=== PATIENT | female | born 2000 | race American Indian/Alaskan Native ===

== ENCOUNTER 2020-03-27 18:14 | Inpatient (IN) | payer MEDICAID ==
[2020-03-27] MEDS: BETAMET ACET/BETAMET NA PH 6 MG/ML INJ 5 ML MDV IM SCH (21:45)
[2020-03-27 22:12] LABS: Basophils % (Auto) 0.4 % (0.0-1.8); Eosinophils # (Auto) 0.1 K/mm3 (0.0-0.4); Eosinophils % (Auto) 0.6 % (0.0-4.3); Hematocrit 34.4 % (30.3-42.9); Hemoglobin 12.1 gm/dl (10.1-14.3); Lymphocytes # (Auto) 1.6 K/mm3 (1.2-5.4); Lymphocytes % (Auto) 14.8 % (13.4-35.0); Mean Corpuscular HGB Conc 35 % (30-34); Mean Corpuscular Volume 86 fl (79-97); Monocytes # (Auto) 0.9 K/mm3 (0.0-0.8); Monocytes % (Auto) 8.7 % (0.0-7.3); Platelet Count 208 K/mm3 (140-440)
--- NOTE | 2020-03-28 06:32 | History and Physical Report ---
<SAMARA GAINES - Last Filed: 03/28/20 06:13> History of Present Illness Date of examination: 03/27/20 Date of admission: 03/27/20 18:14 Chief complaint: Pt was sent by [facility] yesterday for an IOL r/t twin gestation, IUGR, and breech presentation. She denies any complaints and admits to active FM. History of present illness: 19 y/o AA female @ 35.6 wks was sent to [facility] per [facility] for /t di/di twins with twin A LGA and twin B IUGR and transverse. Pt initiated pnc at [facility] at 6 4/7 wks. Her preg has been complicated by anemia, right breast cellulitis (resolved) and vit D def. GBS test was not performed. Pt was admitted to L&D. 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 Family/Genetic History: none Social history: single - Obstetrical History Expected Date of Delivery: 04/25/20 Actual Gestation: 36 Week(s) 0 Day(s) : 2 Para: 0 Medications and Allergies Allergies Allergy/AdvReac Type Severity Reaction Status Date / Time No Known Allergies Allergy Unverified 03/27/20 19:52 Home Medications Medication Instructions Recorded Confirmed Last Taken Type Aspirin 81 mg PO DAILY 03/27/20 03/27/20 03/23/20 History Ferrous Sulfate 325 mg PO BID 03/27/20 03/27/20 03/27/20 History 148/Iron/Folate 6/Dha 148 mg PO DAILY 03/27/20 03/27/20 03/27/20 History Active Meds: Active Medications Betamethasone Acet/Betameth SodPhos (Celestone Soluspan) 12 mg IM Q24H ANTONIO Stop: 03/28/20 20:01 Last Admin: 03/27/20 21:45 Dose: 12 mg Documented by: Review of Systems All systems: negative Eyes: deferred Ears, nose, mouth and throat: deferred Breasts: normal Genitourinary: normal appearance Rectal Exam: deferred - Vital Signs Vital signs: Vital Signs Temp Pulse Resp Pulse Ox 98 F 70 16 98 03/27/20 19:00 03/27/20 19:00 03/27/20 19:00 03/27/20 19:00 Temp Pulse Resp BP Pulse Ox 97.9 F 67 18 110/72 98 03/28/20 04:00 03/28/20 06:10 03/28/20 04:00 03/28/20 04:00 03/28/20 06:10 - Physical Exam Breasts: Positive: normal Cardiovascular: Regular rate Lungs: Positive: Clear to auscultation Abdomen: Positive: normal appearance, soft, normal bowel sounds, other (gravid) Genitourinary (Female): Positive: normal external genitalia, normal perenium Vulva: both: normal Vagina: Positive: normal moisture Uterus: Positive: enlarged (gravid), normal contour, other (gravid) Adnexa: both: normal Anus/Rectum: Positive: normal perianal skin Extremities: Positive: normal - Obstetrical FHR: auscultation normal, category 1 Uterine Contraction Monitor Mode: External Uterine Contraction Pattern: Absent Uterine Tone Measurement Phase: Resting Results Result Diagrams: 03/27/20 21:40 Abnormal lab results 03/27/20 Range/Units 21:40 MCHC 35 H (30-34) % RDW 16.0 H (13.2-15.2) % Crenshaw % (Auto) 8.7 H (0.0-7.3) % Crenshaw # (Auto) 0.9 H (0.0-0.8) K/mm3 Seg Neutrophils % 75.5 H (40.0-70.0) % Seg Neutrophils # 8.1 H (1.8-7.7) K/mm3 All other labs normal. Assessment and Plan A: IUP@ 35.6 wks twin A LGA, twin B IUGR/breech CAT I FHT X2 p: Admit to L&D Continuous monitoring Pain med prn Notify Dr Ruiz for POC <PATIENCE CRUZ JR - Last Filed: 03/28/20 09:16> History of Present Illness Date of admission: 03/27/20 18:14 Medications and Allergies Active Meds: Active Medications Betamethasone Acet/Betameth SodPhos (Celestone Soluspan) 12 mg IM Q24H ANTONIO Stop: 03/28/20 20:01 Last Admin: 03/27/20 21:45 Dose: 12 mg Documented by: - Vital Signs Vital signs: Vital Signs Temp Pulse Resp Pulse Ox 98 F 70 16 98 03/27/20 19:00 03/27/20 19:00 03/27/20 19:00 03/27/20 19:00 Temp Pulse Resp BP Pulse Ox 97.9 F 85 18 121/65 99 03/28/20 07:30 03/28/20 09:08 03/28/20 07:30 03/28/20 07:52 03/28/20 09:08 Results Result Diagrams: 03/27/20 21:40 Abnormal lab results 03/27/20 Range/Units 21:40 MCHC 35 H (30-34) % RDW 16.0 H (13.2-15.2) % Crenshaw % (Auto) 8.7 H (0.0-7.3) % Crenshaw # (Auto) 0.9 H (0.0-0.8) K/mm3 Seg Neutrophils % 75.5 H (40.0-70.0) % Seg Neutrophils # 8.1 H (1.8-7.7) K/mm3 All other labs normal. Assessment and Plan Plan for repeat c/s tomorrow 03/30 after PM betamethasone for lung maturity. Delivery for IOL at Twin B. Patient understands plan for care. --For future fertility
--- NOTE | 2020-03-28 13:57 | Anesthesia Consultation ---
Anesthesia Consult and Med Hx Date of service: 03/28/20 - Airway Anesthetic Teeth Evaluation: Good ROM Head & Neck: Adequate Mental/Hyoid Distance: Adequate Mallampati Class: Class III Intubation Access Assessment: Probably Good - Pulmonary Exam CTA: Yes - Cardiac Exam Cardiac Exam: RRR - Pre-Operative Health Status ASA Pre-Surgery Classification: ASA2 Proposed Anesthetic Plan: Spinal Nerve Block: TAP - Pulmonary Hx Smoking: No Hx Asthma: Yes COPD: No Hx Pneumonia: No Hx Sleep Apnea: No - Cardiovascular System Hx Hypertension: No - Central Nervous System Hx Seizures: No Hx Psychiatric Problems: No - Gastrointestinal Hx Gastroesophageal Reflux Disease: No - Endocrine Hx Renal Disease: No Hx End Stage Renal Disease: No Hx Hypothyroidism: No Hx Hyperthyroidism: No - Hematic Hx Anemia: No Hx Sickle Cell Disease: No - Other Systems Hx Alcohol Use: No - Additional Comments Anesthesia Medical History Comments: Twin
[2020-03-28] MEDS: BETAMET ACET/BETAMET NA PH 6 MG/ML INJ 5 ML MDV IM SCH (22:47)
[2020-03-29] MEDS ORDERED: LACTATED RINGERS 1,000 ML ONE (00:04)
[2020-03-29] MEDS ORDERED: BICITRA ORAL LIQD 30ML PO ONE ×2 (03:51→08:00)
[2020-03-29] MEDS ORDERED: FAMOTIDINE 20 MG/2 ML INJ IV ONE ×2 (03:52→08:00)
[2020-03-29] MEDS ORDERED: METOCLOPRAMIDE 10 MG/2 ML INJ IV NR (04:00)
[2020-03-29] MEDS ORDERED: LACTATED RINGERS 1,000 ML IV SCH (04:00)
[2020-03-29] MEDS ORDERED: ceFAZolin/STERILE WATER 2 GM/20 ML SYRINGE IV NR (06:00)
--- NOTE | 2020-03-29 07:44 | Anesthesia Day of Surgery ---
Anesthesia Day of Surgery - Day of Surgery Patient Examined: Yes Patient H&P Reviewed: Yes Patient is NPO: Yes Beta Blockers: No Cardiac Clearance: No Pulmonary Clearance: No New's Test: N/A
[2020-03-29] MEDS ORDERED: OXYTOCIN DRIP 30,000 MILLIUNITS/500 ML BAG IV ONE ×2 (08:24→11:03)
[2020-03-29] MEDS ORDERED: DEXMEDETOMIDINE 200 MCG/2 ML VIAL IV ONE (08:36)
[2020-03-29] MEDS ORDERED: dexAMETHasone 20 MG/5 ML VIAL ONE (08:36)
[2020-03-29] MEDS ORDERED: BUPIVACAINE/PF (0.5%) 5 MG/1 ML 30 ML VIAL INFILTRATI ONE (08:36)
[2020-03-29] MEDS ORDERED: KETOROLAC 30 MG/1 ML INJ ONE (08:36)
[2020-03-29] MEDS ORDERED: ONDANSETRON 4 MG/2 ML INJ ONE (08:36)
[2020-03-29 09:25] LABS: Hematocrit 34.7 % (30.3-42.9); Hemoglobin 11.5 gm/dl (10.1-14.3); Mean Corpuscular HGB Conc 33 % (30-34); Mean Corpuscular Volume 89 fl (79-97); Platelet Count 208 K/mm3 (140-440); Red Blood Count 3.91 M/mm3 (3.65-5.03); Red Cell Distribution Width 15.5 % (13.2-15.2)
[2020-03-29] MEDS ORDERED: NALOXONE 0.4 MG/1 ML INJ IV PRN ×2 (09:46→11:20)
[2020-03-29] MEDS ORDERED: diphenhydrAMINE 50 MG/ML VIAL IV PRN (09:46)
[2020-03-29] MEDS ORDERED: ONDANSETRON 4 MG/2 ML INJ IV PRN ×2 (09:46→11:22)
[2020-03-29] MEDS ORDERED: NalbUPHINE 10 MG/1 ML INJ IV PRN (09:46)
[2020-03-29] MEDS ORDERED: PROMETHAZINE 25 MG TAB PO PRN (09:46)
[2020-03-29] MEDS ORDERED: PROMETHAZINE 25 MG RECT SUPP PR PRN (09:46)
--- NOTE | 2020-03-29 09:46 | Event Note ---
Date: 03/29/20 Case d/w pt and pt is ready for her Primary LTCS. Patient fully consented for the surgery. Risks, benefits, and alternatives were all discussed with the patient including risk of bleeding, infection, and potential for injury. Patient understands and accepts these risks. Patient agrees to proceed with surgery. All questions were answered.
--- NOTE | 2020-03-29 09:50 | Procedure Note ---
OB Delivery Note - Delivery Date of Delivery: 03/29/20 Surgeon: DEAN LOPEZ Estimated blood loss: other (800cc) - Section Preop diagnosis: other malpresentation, other (twins) Postop diagnosis: same section procedure: section, primary low transverse Disposition: PACU Complications: none Narrative: Indication:19 yo at 36.1 weeks with twins and IUGR of fetus B and Fetus B is transverse Findings: Normal uterus, tubes and ovaries. Clear fluid x2. No nuchal cord. Baby A was vertex, baby B was transverse but delivered vertex. Procedure: Patient taken to the operating room and prepped and draped in the usual fashion. Pfannenstiel skin incision was made and carried down to the underlying fascia. Fascia was incised and the incision was extended bilaterally. Rectus fascia dissected off the rectus muscle both superiorly and inferiorly. Peritoneum identified tented up and entered. Peritoneal incision extended superiorly and inferiorly with good visualization of the bladder. Bladder blade was placed. Uterine incision was made and the incision was extended bilaterally. The baby A was delivered from in the typical vertex fashion. Baby bulb suctioned at the incision site and again after delivery. Cord was delayed clamped and cut and handed off to waiting team. Amniotic membrane for baby B was then ruptured. Baby's presentation was assessed and it was determined to be easier to deliver the baby vertex. Baby was able to be del ivered vertex in the usual fashion without difficulty. Baby was bulb suctioned at the incision site and again after delivery. Cord was clamped and cut and handed off to the waiting team. The placentas were delivered spontaneously and together. The uterus was exteriorized and cleared of all clots and debris. Uterine incision closed with 0 Vicryl in a running locked fashion followed by a second imbricating layer of 0 Vicryl. Good hemostasis was noted. Her urine was clear. Uterus tubes and ovaries were returned to the abdominal cavity. Gutters were cleared of all clots and debris and the pelvis was well irrigated. Good hemostasis noted. Interceed placed over the uterine incision and over the lower uterine segment in the midline. Attention was turned to the rectus fascia which was reapproximated with 0 Vicryl in a running fashion. Subcutaneous tissue was irrigated and reapproximated with 2-0 Vicryl in a running fashion. Skin was closed with 4-0 Vicryl in a subcuticular fashion followed by Dermabond. The procedure was concluded at this point and the patient tolerated the procedure well. All instrument and lap counts were correct. - A at 1 minute: 8 at 5 minutes: 8 Infant Gender: Male B at 1 minute: 8 at 5 minutes: 9 Infant Gender: Male
[2020-03-29] MEDS ORDERED: PHENYLEPHRINE/NS 1,000 MCG/10 ML SYRINGE (OR USE) IV ONE (10:15)
--- NOTE | 2020-03-29 10:20 | Progress Note ---
Spinal Anesthesia Block - Spinal Anesthesia Block Start Time: 09:51 Stop Time: 10:10 Performed by:: RAY WINSLOW ([facility]) Procedure: Spinal anesthesia block is being performed for [C/S]. H&P, labs have been reviewed. Patient's questions and concerns have been answered. Informed consent has been performed. Timeout has was performed. Patient in sitting position on side of bed. Sterile prep and drape was performed. 3 mL 1% lido duane skin wheal at L [3]-L [4]. Needle introducer advanced. 25-gauge spinal needle advanced, [+] CSF [-] blood. [Marcaine 13.5mg and Precedex 10mcg] Spinal dose was given. All needles removed. Patient tolerated procedure well.
[2020-03-29] MEDS ORDERED: SODIUM CHLORIDE 0.9% IRR 1,500 ML BOTTLE IR ONE (10:45)
[2020-03-29] MEDS ORDERED: WATER FOR IRRIG STERILE 1,500 ML BOTTLE IR ONE (11:00)
[2020-03-29] MEDS ORDERED: LANOLIN/ZINC/DIMETHICONE (LANSINOH) 7 GM TP PRN (11:20)
[2020-03-29] MEDS ORDERED: WITCH HAZEL/ GLYCERIN PAD TP PRN (11:20)
[2020-03-29] MEDS ORDERED: SIMETHICONE 80 MG CHEW TAB PO PRN (11:22)
--- NOTE | 2020-03-29 11:53 | Progress Note ---
Regional Anesthesia Block - Regional Anesthesia Block Start Time: 11:40 Stop Time: 11:50 Performed By:: RAY WINSLOW Procedure: Patient consented for TAP block for post surgical pain management. Patient identified, monitors placed, and time out performed. Mid axillary TAP identified bilaterally via ultrasound. Skin prepped bilaterally with [chlorhexidine] and [20g stimuplex] needle advanced to the TAP. 30ml [Marcaine 0.25% with 25mcg Pre cedex and Decadron 4mg] injected under ultrasound guidance on the [left] side. 30ml [Marcaine 0.25% with 25mcg Precedex and Decadron 4mg] injected under ultrasound guidance on the [right] side.
[2020-03-29] MEDS ORDERED: OXYTOCIN DRIP 30 UNITS/500 ML BAG IV SCH (12:00)
[2020-03-29] MEDS: KETOROLAC 30 MG/1 ML INJ IV PRN (16:45)
[2020-03-29] MEDS: HYDROmorphone 1 MG/1 ML INJ IV PRN (20:40)
[2020-03-29] MEDS ORDERED: SENNOSIDES 8.6 MG TAB PO PRN (22:00)
[2020-03-29] MEDS ORDERED: MAGNESIUM HYDROXIDE (MOM) ORAL LIQD UDC PO PRN (22:00)
[2020-03-30] MEDS: KETOROLAC 30 MG/1 ML INJ IV PRN ×2 (00:39→06:07)
[2020-03-30] MEDS: HYDROmorphone 1 MG/1 ML INJ IV PRN (02:07)
[2020-03-30 06:11] LABS: Hematocrit 28.9 % (30.3-42.9); Hemoglobin 9.6 gm/dl (10.1-14.3)
--- NOTE | 2020-03-30 07:25 | Progress Note ---
Assessment and Plan A: /postop day 1 S/P primary LTCS. Anemia. Heart murmur (new). Chest pain. P: EKG, CXR. Hospitalist consult ordered. Pepcid IV ordered. Supplement with iron. Subjective - Subjective Date of service: 03/30/20 Principal diagnosis: day 1 S/P primary LTCS twins Interval history: Patient complains of left sided chest pain. She denies shortness of breath. Denies headache, visual disturbance, nausea or vomiting, leg pain, cough, or dizziness. Patient reports: appetite normal, voiding normally, pain well controlled, flatus, ambulating normally, no dizzy ambulation, no nauseated [place]: doing well, in NICU Objective - Vital Signs Latest vital signs: Vital Signs Temp Pulse Resp BP Pulse Ox 03/30/20 06:35 18 03/30/20 06:07 18 03/30/20 05:23 98.2 F 62 20 116/67 99 03/30/20 02:37 18 03/30/20 02:07 18 03/30/20 01:09 18 03/30/20 00:39 18 03/30/20 00:10 98.2 F 66 20 114/56 98 03/29/20 21:10 18 03/29/20 20:47 97.9 F 85 20 116/68 98 03/29/20 20:40 18 03/29/20 16:06 97.1 F L 54 L 20 133/72 100 03/29/20 12:15 55 L 18 124/70 99 03/29/20 12:00 55 L 18 119/62 99 03/29/20 11:45 54 L 16 107/56 99 03/29/20 11:40 59 L 18 104/48 99 03/29/20 11:37 61 16 113/53 99 03/29/20 11:32 97.5 F L 61 18 114/58 99 03/29/20 08:32 80 116/76 03/29/20 08:31 80 99 Intake and Output 03/29/20 03/29/20 03/30/20 15:59 23:59 07:59 Intake Total 1999 360 Output Total 450 1800 800 Balance 1550 -1440 -800 Intake: IV 2000 Oral 360 Output: Urine 450 1800 800 Indwelling Catheter 1800 Uretheral (Randolph) 300 Void 800 Other: Total, Intake Amount 240 Total, Output Amount 800 800 # Voids Void 1 - Exam Cardiovascular: Present: Regular rate, Other (Murmur heard) Lungs: Present: Clear to auscultation Abdomen: Present: normal appearance, soft, normal bowel sounds. Absent: distention, tenderness, guarding, rigidity Uterus: Present: normal, firm, fundal height below umbilicus. Absent: bogginess, tenderness Incision: Present: normal, dry, dressed - Labs Labs: Abnormal lab results 03/29/20 03/30/20 Range/Units 08:25 05:55 WBC 16.7 H (4.5-11.0) K/mm3 Hgb 9.6 L (10.1-14.3) gm/dl Hct 28.9 L (30.3-42.9) % RDW 15.5 H (13.2-15.2) %
--- NOTE | 2020-03-30 09:16 | XRay Report ---
CHEST 2 VIEWS INDICATION: chest pain. COMPARISON: FINDINGS: Support devices: None. Heart: Within normal limits. Lungs: No acute air space or interstitial disease. Pleura: No significant pleural effusion. No pneumothorax. Additional findings: None. IMPRESSION: 1. No acute findings. Signer Name: Enrike Berrios MD Signed: 03/30/2020 9:11 AM Workstation Name: [id number]
[2020-03-30] MEDS: oxyCODONE /ACETAMINOPHEN 5-325MG TAB PO PRN ×2 (10:10→20:59)
[2020-03-30] MEDS: FERROUS SULFATE 325 MG TAB PO SCH (10:11)
[2020-03-30] MEDS: FAMOTIDINE 20 MG/2 ML INJ IV SCH (10:11)
--- NOTE | 2020-03-30 10:12 | Post Anesthesia Evaluation ---
- Post Anesthesia Evaluation Patient Participated: Yes Airway Patent: Yes Stable Respiratory Function: Yes Nausea/Vomiting: No Temp > 96.8F: Yes Pain Manageable: Yes Adequeate Hydration: Yes Anesthesia Complications: No Block Receding Appropriately: Yes Patient on Ventilator: No
--- NOTE | 2020-03-30 13:20 | Consultation ---
History of Present Illness - Reason for Consult Consult date: 03/30/20 Medical management Requesting physician: DEAN LOPEZ - History of Present Illness 19 y/o AA female @ 35.6 wks was sent to [facility] per [facility] for /t di/di twins with twin A LGA and twin B IUGR and transverse. Pt initiated pnc at [facility] at 6 4/7 wks. Her preg has been complicated by anemia, right breast cellulitis (resolved) and vit D def. GBS test was not performed. Pt was admitted to L&D. Complains of chest pain since AM Past History Past Medical History: anemia Past Surgical History: No surgical history Social history: single Family history: hypertension Medications and Allergies Allergies Allergy/AdvReac Type Severity Reaction Status Date / Time No Known Allergies Allergy Unverified 03/27/20 19:52 Home Medications Medication Instructions Recorded Confirmed Last Taken Type Aspirin 81 mg PO DAILY 03/27/20 03/27/20 03/23/20 History Ferrous Sulfate 325 mg PO BID 03/27/20 03/27/20 03/27/20 History 148/Iron/Folate 6/Dha 148 mg PO DAILY 03/27/20 03/27/20 03/27/20 History Ibuprofen [Motrin 800 MG tab] 800 mg PO Q8HR PRN #30 tablet 03/29/20 Unknown Rx oxyCODONE /ACETAMINOPHEN [Percocet 1 tab PO Q4HR PRN #30 tab 03/29/20 Unknown Rx 5/325] Active Meds: Active Medications Diphenhydramine HCl (Benadryl) 12.5 mg IV Q2H PRN PRN Reason: Itching Famotidine (Pepcid) 20 mg [facility] Last Admin: 03/30/20 10:11 Dose: 20 mg Documented by: Ferrous Sulfate (Feosol) 325 mg PO QDAY [facility] Last Admin: 03/30/20 10:11 Dose: 325 mg Documented by: Hydromorphone HCl (Dilaudid) 0.5 mg IV Q4H PRN PRN Reason: breakthrough pain > 7/10 Last Admin: 03/30/20 02:07 Dose: 0.5 mg Documented by: Lactated Ringer's (Lactated Ringers) 1,000 mls @ 125 mls/hr IV DIRECT ANTONIO Oxytocin/Sodium Chloride (Pitocin/Ns 30 Unit/500ml) 30 units in 500 mls @ 40 mls/hr IV TITR ANTONIO; Protocol Ibuprofen (Ibuprofen) 800 mg PO Q6H PRN PRN Reason: Pain, Mild (1-3) Magnesium Hydroxide (Milk Of Magnesia) 30 ml PO QHS PRN PRN Reason: Constip Unrelieved By Senna Multi-Ingredient Ointment (Lansinoh) 1 applic TP PRN PRN PRN Reason: dryness/cracking Nalbuphine HCl (Nalbuphine) 2.5 mg IV Q2H PRN PRN Reason: Itching Naloxone HCl (Naloxone) 0.2 mg IV Q2MIN PRN PRN Reason: Res Rate </= 8 or 02 SAT < 92% Naloxone HCl (Naloxone) 0.1 mg IV Q2MIN PRN PRN Reason: Res Rate </= 8 or 02 SAT < 92% Ondansetron HCl (Zofran) 4 mg IV Q8H PRN PRN Reason: Nausea And Vomiting Oxycodone/Acetaminophen (Percocet 5/325) 1 tab PO Q6H PRN PRN Reason: Pain, Moderate (4-6) Last Admin: 03/30/20 10:10 Dose: 1 tab Documented by: Promethazine HCl (Phenergan) 25 mg PO Q6H PRN PRN Reason: Nausea And Vomiting Promethazine HCl (Phenergan) 25 mg [place] Q6H PRN PRN Reason: Nausea And Vomiting Senna (Senokot) 17.2 mg PO QHS PRN PRN Reason: Constipation Simethicone (Mylicon) 80 mg PO Q6H PRN PRN Reason: Gas pain Witch [place]onia/Glycerin (Tucks Pad) 1 each TP PRN PRN PRN Reason: Hemorrhoids/cleansing/soothing Review of Systems All systems: negative Cardiovascular: chest pain Exam - Constitutional Vitals: Temp Pulse Resp BP Pulse Ox 97.9 F 55 L 18 110/63 99 03/30/20 08:02 03/30/20 08:02 03/30/20 10:10 03/30/20 08:02 03/30/20 08:02 General appearance: Present: no acute distress, well-nourished - EENT Eyes: Present: PERRL ENT: hearing intact, clear oral mucosa - Neck Neck: Present: supple, normal ROM - Respiratory Respiratory effort: normal Respiratory: bilateral: CTA - Cardiovascular Heart rate: 76 Rhythm: regular Heart Sounds: Present: S1 & S2. Absent: rub, click - Extremities Extremities: no ischemia, pulses intact, pulses symmetrical, No edema Peripheral Pulses: within normal limits - Abdominal General gastrointestinal: Present: soft, non-tender, non-distended, normal bowel sounds Female genitourinary: Present: normal - Rectal Rectal Exam: deferred - Integumentary Integumentary: Present: clear, warm, dry - Musculoskeletal Musculoskeletal: gait normal, strength equal bilaterally - Psychiatric Psychiatric: appropriate mood/affect, intact judgment & insight - Neurologic Neurologic: CNII-XII intact, moves all extremities - Allied Health Allied health notes reviewed: nursing, case management HEART Score - HEART Score History: Slightly suspicious Risk factors: No known risk factors Troponin: < normal limit Results - Labs CBC & Chem 7: 03/30/20 05:55 Labs: Abnormal lab results 03/30/20 Range/Units 05:55 Hgb 9.6 L (10.1-14.3) gm/dl Hct 28.9 L (30.3-42.9) % Short CBC 03/30/20 Range/Units 05:55 Hgb 9.6 L (10.1-14.3) gm/dl Hct 28.9 L (30.3-42.9) % Assessment and Plan - Patient Problems (1) Chest pain Current Visit: Yes Status: Acute Qualifiers: Chest pain type: chest pain on breathing Qualified Code(s): R07.1 - Chest pain on breathing; R07.81 - Pleurodynia Plan to address problem: Chest pain is left pectoral region Chest wall tenderness present No murmurs or pericardial rub Chest pain secondary to muscular injury EKG is normal Diagnosis consistent with costochondritis Tylenol for time being till she can start anti-inflammatories like meloxicam meloxicam and Motrin. (2) DVT prophylaxis Current Visit: Yes Status: Acute Plan to address problem: On Lovenox and GI prophylaxis (3) Discharge planning issues Current Visit: Yes Status: Acute Plan to address problem: Patient is stable for discharge from medical standpoint of view. Also her EKG is normal.
[2020-03-30] MEDS: IBUPROFEN 800 MG TAB PO PRN ×2 (14:49→22:07)
[2020-03-31] MEDS: oxyCODONE /ACETAMINOPHEN 5-325MG TAB PO PRN (02:15)
--- NOTE | 2020-03-31 09:54 | Progress Note ---
Assessment and Plan POD # 2 A: S/P primary c/s (twins) Anemia Costochondritis P: Continue monitoring Fe as prescribed Pain med prn D/c home tomm if stable - Patient Problems (1) Acute costochondritis Current Visit: Yes Status: Acute (2) Anemia Current Visit: Yes Status: Acute Subjective - Subjective Principal diagnosis: day 1 S/P primary LTCS twins Interval history: 19 y/o AA female @ 35.6 wks was sent to [facility] per [facility] for /t di/di twins with twin A LGA and twin B IUGR and transverse. Pt [facility] at 6 4/7 wks. Her preg has been complicated by anemia, right breast cellulitis (resolved) and vit D def. GBS test was not performed. Pt was admitted to L&D. Patient reports: appetite normal, voiding normally, pain well controlled, ambulating normally : doing well, in NICU (1 baby in NICU), nursing well Objective - Vital Signs Latest vital signs: Vital Signs Temp Pulse Resp BP Pulse Ox 03/31/20 09:24 97.8 F 57 L 18 127/84 100 03/31/20 03:15 18 03/31/20 02:15 18 03/31/20 00:57 98.7 F 58 L 18 123/67 100 03/30/20 23:07 18 03/30/20 22:07 18 03/30/20 21:41 18 03/30/20 20:59 18 03/30/20 16:45 98.0 F 66 18 113/64 99 03/30/20 10:10 18 Intake and Output 03/30/20 03/31/20 03/31/20 22:59 06:59 14:59 Intake Total 360 240 Balance 360 240 Intake: Oral 240 Intake, Free Water 120 240 Other: Total, Intake Amount 240 # Voids Void 3 2 - Exam Breasts: Present: normal Abdomen: Present: normal appearance, soft, normal bowel sounds Vulva: both: normal Uterus: Present: normal, firm, fundal height below umbilicus Extremities: Present: normal Incision: Present: normal, dry, intact
--- NOTE | 2020-03-31 10:02 | Discharge Summary ---
Providers - Providers Date of Admission: 03/27/20 18:14 Date of discharge: 04/01/20 Attending physician: DONNA BANKS MD 03/30/20 07:26 Consult to Physician [CONS] Urgent Comment: Consulting Provider: KATIE FLOWERS Physician Instructions: Reason For Exam: heart murmur, chest pain Primary care physician: PT ESCORT Hospitalization Reason for admission: section Delivery: Procedure: primary low transverse Episiotomy: none Laceration: none Incision: normal, dry, intact complications: other (costochondritis, anemia) Discharge diagnosis: IUP at term delivered baby: twins Hospital course: Pt was admitted for a primary c/s r/t twin gestation and 1 breech pres. She developed costochondritis pp and was evaluated by internal for same. Pt was d/cd home in stable condition. See H&P, Delivery summary, and pp notes. Condition at discharge: Stable Disposition: DC-01 TO HOME OR SELFCARE - Discharge Diagnoses (1) Acute costochondritis Status: Acute (2) Anemia Status: Acute Plan - Discharge Medications Prescriptions: Ibuprofen [Motrin 800 MG tab] 800 mg PO Q8HR PRN #30 tablet PRN Reason: Pain , Severe (7-10) oxyCODONE /ACETAMINOPHEN [Percocet 5/325] 1 tab PO Q4HR PRN #30 tab PRN Reason: Pain , Severe (7-10) - Provider Discharge Summary Activity: no sex for 6 weeks, no heavy lifting 4 weeks, no strenuous exercise Diet: routine Instructions: other (Discussed diet high in Fe. Advised continuation of pnv and Fe.) Additional instructions: [] Smoking cessation referral if applicable(refer to patient education folder for contact #) [] Refer to [facility] Booklet Call your doctor immediately for: * Fever > 100.5 * Heavy vaginal bleeding ( >1 pad per hour) * Severe persistent headache * Shortness of breath * Reddened, hot, painful area to leg or breast * Drainage or odor from incision. * Keep incision clean and dry at all times and follow doctor's instructions regarding bathing/showering - Follow up plan Follow up: PRIMARY CARE, [Primary Care Provider] - 14 Days
[2020-03-31] MEDS: FERROUS SULFATE 325 MG TAB PO SCH (10:23)
[2020-03-31] MEDS: FAMOTIDINE 20 MG/2 ML INJ IV SCH (10:24)
[2020-03-31] MEDS ORDERED: FAMOTIDINE 20 MG TAB PO SCH (11:00)
[2020-03-31] MEDS ORDERED: oxyCODONE /ACETAMINOPHEN 5-325MG TAB PO PRN (11:00)
--- NOTE | 2020-03-31 16:20 | Progress Note ---
Assessment and Plan - Patient Problems (1) Chest pain Current Visit: Yes Status: Acute Qualifiers: Chest pain type: chest pain on breathing Qualified Code(s): R07.1 - Chest pain on breathing; R07.81 - Pleurodynia Plan to address problem: Chest pain is left pectoral region Chest wall tenderness present No murmurs or pericardial rub Chest pain secondary to muscular injury EKG is normal Diagnosis consistent with costochondritis Tylenol for time being till she can start anti-inflammatories like meloxicam meloxicam and Motrin. (2) DVT prophylaxis Current Visit: Yes Status: Acute Plan to address problem: On Lovenox and GI prophylaxis (3) Discharge planning issues Current Visit: Yes Status: Acute Plan to address problem: Patient is stable for discharge from medical standpoint of view. Also her EKG is normal. Subjective Date of service: 03/31/20 Principal diagnosis: day 1 S/P primary LTCS twins Interval history: Mild chest pain Reproducible Objective - Constitutional Vitals: Vital Signs - 12hr 03/31/20 09:24 Temperature 97.8 F Pulse Rate 57 L Respiratory 18 Rate Blood Pressure 127/84 O2 Sat by Pulse 100 Oximetry General appearance: Present: no acute distress, well-nourished - EENT Eyes: PERRL, EOM intact ENT: hearing intact, clear oral mucosa Ears: bilateral: normal - Neck Neck: supple, normal ROM - Respiratory Respiratory effort: normal Respiratory: bilateral: CTA - Breasts Breasts: normal - Cardiovascular Heart rate: 78 Rhythm: regular Heart Sounds: Present: S1 & S2. Absent: gallop, rub Extremities: pulses intact, No edema, normal color, Full ROM - Gastrointestinal General gastrointestinal: Present: soft, non-tender, non-distended, normal bowel sounds - Genitourinary Female genitourinary: normal - Integumentary Integumentary: clear, warm, dry - Musculoskeletal Musculoskeletal: 1, strength equal bilaterally - Neurologic Neurologic: moves all extremities - Psychiatric Psychiatric: memory intact, appropriate mood/affect, intact judgment & insight - Labs CBC & Chem 7: 03/30/20 05:55 HEART Score - HEART Score Risk factors: No known risk factors Troponin: Troponin T < 0.010 ng/mL (0.00-0.029) 03/30/20 18:42 Troponin: < normal limit
[2020-03-31 17:40] VITALS: BP 122/75
[2020-03-31] MEDS: IBUPROFEN 800 MG TAB PO PRN (21:49)
== END 2020-03-31 21:30 | disposition home or self-care (01) | DRG 765 ==
LOC: LD 18:14 → APU 03-29 10:30 → OB 03-29 13:05
PROVIDERS: ADMIT Obstetrics & Gynecology; ATTEND Obstetrics & Gynecology
PROC: 10D00Z1 Extraction of Products of Conception, Low, Open Approach (ICD-10-PCS; principal; 2020-03-29)
DX: O30.043 Twin pregnancy, dichorionic/diamniotic, third trimester (principal); O36.5932 Maternal care for other known or suspected poor fetal growth, third trimester, fetus 2; O32.1XX0 Maternal care for breech presentation, not applicable or unspecified; Z20.828 Contact with and (suspected) exposure to other viral communicable diseases; O99.02 Anemia complicating childbirth; O75.89 Other specified complications of labor and delivery; M94.0 Chondrocostal junction syndrome [Tietze]; Z82.49 Family history of ischemic heart disease and other diseases of the circulatory system; Z37.2 Twins, both liveborn; Z79.899 Other long term (current) drug therapy; Z79.82 Long term (current) use of aspirin; Z3A.36 36 weeks gestation of pregnancy
CPT/HCPCS: 36415; 71046; 84484; 85014; 85018; 85025; 85027; 86850; 86900; 86901; 88307; 93005; G0378; C1765; J0702; J1100; J1170; J1885; J2370; J2405; J2765; J3490; U0003-CS